=== PATIENT | male | born 1960 | race Caucasian/White ===

== ENCOUNTER 2018-06-23 18:58 | Emergency (ER) | payer SELFPAY ==
[~2018-06-23] VITALS: Ht 190.5 cm; Wt 83.9 kg
--- NOTE | 2018-06-23 19:16 | NUR ---
Dr. Ocasio at bedside for MSE.
[2018-06-23] MEDS ORDERED: SULFAMETH/TRIMETH 800/160 MG TABLET ONE (19:26)
--- NOTE | 2018-06-23 19:27 | NUR ---
Patient discharged to home in stable conditon. Written and verbal after care instructions given. Patient verbalizes understanding of instructions. Pt ambulated out of ER with steady gait, no acute signs of distress, VSS, all belongings taken.
[2018-06-23 19:28] VITALS: BP 139/92
[2018-06-23] MEDS ORDERED: SULFAMETH/TRIMETH 800/160 MG TABLET PO ONE (19:30)
== END 2018-06-23 19:29 | disposition home or self-care (01) ==
LOC: ER 19:02
DX: R21 Rash and other nonspecific skin eruption (principal)
CPT/HCPCS: A4663